=== PATIENT | female | born 1980 | race Caucasian/White ===

== ENCOUNTER 2020-03-05 15:23 | Emergency (ER) | payer OTHER ==
[~2020-03-05] VITALS: Ht 167.6 cm; Wt 70.3 kg
[2020-03-05 15:39] VITALS: BP 124/76
[2020-03-05] MEDS ORDERED: traMADol HCL 50 MG TAB PO ONE (15:45)
== END 2020-03-05 18:04 | disposition left against medical advice (07) ==
LOC: ER 15:23
DX: R07.89 Other chest pain (principal); F17.210 Nicotine dependence, cigarettes, uncomplicated
CPT/HCPCS: 93005

== ENCOUNTER 2021-07-23 17:10 | Emergency (ER) | payer OTHER ==
[~2021-07-23] VITALS: Ht 167.6 cm; Wt 77.6 kg
[2021-07-23 17:41] VITALS: BP 119/48
== END 2021-07-23 19:38 | disposition left against medical advice (07) ==
LOC: ER 17:11
DX: M79.89 Other specified soft tissue disorders (principal); Z53.21 Procedure and treatment not carried out due to patient leaving prior to being seen by health care provider

== ENCOUNTER 2021-08-18 08:26 | Emergency (ER) | payer OTHER ==
[~2021-08-18] VITALS: Ht 167.6 cm; Wt 79.8 kg
[2021-08-18] MEDS ORDERED: NAP500T PO (09:53)
[2021-08-18] MEDS ORDERED: KETOROLAC TROMETH 60MG/2ML VIAL IM ONE (10:00)
[2021-08-18 11:13] VITALS: BP 101/55
== END 2021-08-18 11:23 | disposition home or self-care (01) ==
LOC: ER 08:26
DX: G89.29 Other chronic pain (principal); M25.532 Pain in left wrist; M25.531 Pain in right wrist; R20.0 Anesthesia of skin; F17.210 Nicotine dependence, cigarettes, uncomplicated
CPT/HCPCS: 73110; 96372; 99283; J1885